=== PATIENT | female | born 1985 | race Caucasian/White ===

== ENCOUNTER 2024-06-26 00:42 | Emergency (ER) | payer BC, SELFPAY ==
[2024-06-26 01:25] VITALS: BP 138/88
[2024-06-26 02:07] VITALS: BMI 23.4
--- NOTE | 2024-06-26 02:14 | ED.GENMED ---
History of Present Illness
General
Chief Complaint: Crisis Evaluation
Source: patient
Exam Limitations: none
Time Seen by Provider: 06/26/24 01:27
Nursing documentation reviewed up to this point in time: agreed with
History of Present Illness
History of Present Illness:
38-year-old female brought in by police after being arrested for suspicion of driving under the influence. Patient made comments stating that she wanted to hurt herself by jumping in front of a moving vehicle. Patient admits to drinking alcohol
this evening. She states that she wants help and is willing to voluntarily sign herself into a psychiatric facility. She still admits to wanting to harm herself. Patient has a past medical history significant for depression. She does take
medications for depression. She denies tobacco or illicit drug use. She works in a daycare.
Review of Systems
Review of Systems
Allergies reviewed?: Yes
All Other Systems: ROS reviewed and negative except as documented in HPI and ROS
Constitutional: Reports no symptoms
EENT: Reports no symptoms
Respiratory: Reports no symptoms
Cardiac: Reports no symptoms
ABD/GI: Reports no symptoms
: Reports no symptoms
Musculoskeletal: Reports no symptoms
Skin: Reports no symptoms
Neurological: Reports no symptoms
Endocrine: Reports no symptoms
Hematologic/Lymphatic: Reports no symptoms
Psychiatric: Reports depression, anxiety and suicidal
Phy Exam
General Physical Exam
General Presentation: well appearing and no apparent distress
General Skin: warm and dry
General Habitus: normal
General Mental: alert
General Hydration: appears well hydrated
ENT Exam
ENT Exam: EOMI, pharynx normal, neck supple and normocephalic
Eye Exam
Eye Exam: PERRL, cornea clear and conjunctiva normal
Cardiovascular Exam
Cardiovascular Exam: regular rate/rhythm, no edema, no murmur and normal peripheral pulses
Pulmonary Exam
Pulmonary Exam: lungs clear, no respiratory distress, no rales, no crackles, no rhonchi, no stridor, no wheezing and no cough
Gastrointestinal Exam
Gastrointestinal Exam: normal bowel sounds, non tender, soft, no organomegaly, no pulsatile mass and non distended
Neurological Exam
Neurological Exam: alert, oriented x3, no motor deficits and speech normal
Musculoskeletal Exam
Musculoskeletal Exam: full ROM and no edema
Skin Exam
Skin Exam: normal color, warm/dry, no rash and no petechia
Psychiatric Exam
Psychiatric Exam: anxious and suicidal
Course
Orders/Labs/Results
Orders:
Orders
06/26/24 02:06
Acetaminophen Urgent
Alcohol Urgent
Complete Blood Count/With Diff Urgent
Comprehensive Metabolic Panel Urgent
HCG, Serum Qualitative Screen Urgent
Salicylate Urgent
Urine Drug Abuse Screen Urgent
06/26/24 02:07
Test Result ONCE
Vital Signs
Initial and Last Documented VS:
Initial Vital Signs
Pulse Ox
97
06/26/24 01:31
Last Documented Vital Signs
Pulse Ox
97
06/26/24 01:31
*Critical Care Note
Total Time (30-74mins, 75-104mins- exclusive of procedures): Not Applicable
ED Attending Note
-
Portions of this chart may have been created with voice recognition software.� Occasional wrong word or��sound alike� substitutions may have occurred due to the inherent limitations of voice recognition software.
Discharge Plan
Departure
Patient Disposition: Psych Facility
Date of Disposition: 06/26/24
Time of Disposition: 02:18
Patient Status:: 201
Condition: Good
Discharge Problem:
Suicidal ideation
Instructions: Depression, Adult (DC), Anxiety, Adult (DC)
Interventions
Interventions:
*Risk Screen - Suicide Last Done: 06/26/24 01:06
*General Assessment Last Done: 06/26/24 01:06
*Neglect/Abuse Screening Last Done: 06/26/24 01:06
ED- Fall Risk Assessment Last Done: 06/26/24 01:31
ED-Psychological Assessment Last Done: 06/26/24 01:31
Discharge Date and Time
Print Language: MARTINIQUAIS
[2024-06-26 02:27] VITALS: BP 136/82
[2024-06-26 03:00] LABS: HCG, Serum Qualitative Screen Negative
[2024-06-26 03:01] LABS: Hematocrit 36.6 % (37.0-47.0); Hemoglobin 13.1 g/dL (12.0-16.0); Mean Corp Hgb Conc. 35.8 g/dL (33.0-37.0); Mean Corpuscular Hgb 31.2 pg (27.0-31.0); Mean Corpuscular Volume 87.1 fL (81.0-99.0); Mean Platelet Volume 8.4 fL (7.4-10.4); Platelet Count 296 10^3/uL (130-400); Red Cell Dist. Width 11.8 % (11.5-14.5); White Blood Cell Count 8.2 10^3/uL (4.8-10.8)
[2024-06-26 03:20] LABS: ALT (SGPT) 22 U/L (0-35); AST (SGOT) 24 U/L (14-36); Acetaminophen < 10 ug/ml (10-30); Albumin 4.7 g/dl (3.5-5.0); Alcohol 134 mg/dl; Alkaline Phosphatase 81 U/L (38-126); Blood Urea Nitrogen 13 mg/dl (7-17); Calcium 8.9 mg/dl (8.4-10.2); Carbon Dioxide 21 mmol/L (22-30); Chloride 105 mmol/L (98-107); Estimated Creatinine Clearance 98 ml/min; Glucose 99 mg/dl (70-99); Potassium 3.8 mmol/L (3.5-5.1); Salicylate < 1.0 mg/dl (2.0-20.0); Sodium 142 mmol/L (135-145); Total Bilirubin 0.4 mg/dl (0.2-1.3); Total Protein 7.2 g/dl (6.3-8.2); eGFR > 60.00
[2024-06-26 03:22] LABS: Amphetamines Negative (Negative); Barbiturates Negative (Negative); Benzodiazepines Negative (Negative); Buprenorphine Negative (Negative); Cocaine Negative (Negative); Marijuana Negative (Negative); Methadone Negative (Negative); Methamphetamines Negative (Negative); Opiates Negative (Negative); Phencyclidine Negative (Negative); Tricyclic Antidepressants Negative (Negative)
[2024-06-26 04:21] LABS: % Basophils 0.5 % (0-2); % Eosinophils 1.3 % (0-6); % Immature Granulocytes 0.2 % (0-0.5); % Lymphocytes 55.8 % (20.5-51.1); % Neutrophils 38.2 % (42.2-75.2); Absolute Eosinophils 0.1 10^3/uL (0-0.7); Absolute Lymphocytes 4.6 10^3/uL (1.2-3.4); Absolute Monocytes 0.3 10^3/uL (0.1-0.6); Absolute Neutrophils 3.1 10^3/uL (1.4-6.5); Nucleated Red Blood Cells % 0 %
[2024-06-26 09:10] VITALS: BP 163/113
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
[2024-06-26 14:22] VITALS: BP 158/108
--- NOTE | 2024-06-26 14:22 | ED.CRISIS ---
ED Crisis Note
ED Crisis Note
Subjective:
Patient resting comfortably reviewed with psychiatry wants to go inpatient, blood pressure is elevated told that she has what sounds like whitecoat hypertension when she was at the dentist will repeat here sideration for benzos and/or blood pressure
medicine
Objective:
anxiety
Assessment/Plan:
inpatient psych
follow bp
watch for s/s withdrawal
[2024-06-26] MEDS: PROZAC 40 MG PO (15:31)
[2024-06-26] MEDS: LAMICTAL 150 MG PO (15:33)
[2024-06-26] MEDS: VASOTEC 5 MG PO (15:33)
[2024-06-26 18:18] VITALS: BP 149/96
== END 2024-06-27 03:40 ==
LOC: EMR 00:42
PROVIDERS: Student in an Organized Health Care Education/Training Program; CONSULT PHYSICIAN Psychiatry & Neurology Psychiatry; EMERGENCY PHYSICIAN Emergency Medicine
DX: R45.851 Suicidal ideations (principal); F32.A Depression, unspecified; F41.9 Anxiety disorder, unspecified; F10.90 Alcohol use, unspecified, uncomplicated; I10 Essential (primary) hypertension; G43.909 Migraine, unspecified, not intractable, without status migrainosus; F33.9 Major depressive disorder, recurrent, unspecified; F43.10 Post-traumatic stress disorder, unspecified; Z91.51 Personal history of suicidal behavior
CPT/HCPCS: 99285; 80053; 80143; 80179; 80306; 82077; 84703; 85025